=== PATIENT | male | born 1955 | race Caucasian/White ===

== ENCOUNTER 2025-07-22 23:19 | Inpatient (IN) | payer MEDICARE, OTHER ==
[2025-07-23] MEDS ORDERED: Calcium Carbonate 500 MG ChewTAB PO PRN (00:57)
[2025-07-23] MEDS ORDERED: Ondansetron PF 4 MG/2 ML Vial IVP PRN (00:57)
[2025-07-23] MEDS ORDERED: Acetaminophen 325 MG TAB PO PRN (00:57)
[2025-07-23 01:53] LABS: Hematocrit 16.7 % (42.0-52.0); Hemoglobin 5.2 g/dL (14.0-18.0); Mean Corpuscular Hemoglobin 33.3 pg (27.0-31.0); Mean Corpuscular Volume 107.1 fL (78.0-98.0); Platelet Count 101 10x3/uL (130-400); Red Blood Cell (RBC) Count 1.56 mill/uL (4.70-6.10); White Blood Cell (WBC) Count 2.98 10x3/uL (4.8-10.8)
[2025-07-23 01:55] LABS: Iron 126 ug/dL (65-175); Iron Binding Capacity, Total 244 mcg/dL (261-462)
[2025-07-23 01:56] LABS: ALT (SGPT) 17 U/L (Less than 45); AST (SGOT) 27 U/L (11-34); Albumin 3.3 g/dL (3.1-4.5); Alkaline Phosphatase 73 U/L (40-110); Anion Gap 9 mmol/L (10-20); BUN (Urea Nitrogen) 19 mg/dL (8.4-25.7); Bilirubin, Total 1.9 mg/dL (0.3-1.2); Calc. Creatinine Clearance 0 mL/min (70-130); Calcium 8.7 mg/dL (7.8-10.44); Carbon Dioxide 23 mmol/L (23-31); Cardiac Risk 3.7 (Less than 4.5); Chloride 105 mmol/L (98-107); Cholesterol 71 mg/dl (< 200 Desired); Globulin 5.4 g/dL (2.4-3.5); Glucose 158 mg/dL (83-110); HDL Cholesterol 19 mg/dL (>60 Neg Risk); Iron 124 ug/dL (65-175); Iron Binding Capacity, Total 245 mcg/dL (261-462); LDL Cholesterol, Calculated 37 mg/dL; Magnesium 2.2 mg/dL (1.6-2.6); Potassium 4.5 mmol/L (3.5-5.1); Sodium 132 mmol/L (136-145); Triglycerides 74 mg/dL (Less than 150)
[2025-07-23] MEDS ORDERED: Glucagon 1 MG/ML KIT IM PRN (02:02)
[2025-07-23] MEDS ORDERED: Dextrose 50% Abboject 50 ML SYRINGE SLOW IVP PRN (02:02)
[2025-07-23 02:15] LABS: Anisocytosis MODERATE=16-30 cells HPF (0-5); Macrocytosis SLIGHT = 6-15 cells HPF (0-5); Nucleated RBC (Manual Ct) 2 % (0); Ovalocytes SLIGHT = 2-5 cells HPF (0-1); Platelet Adequacy Comment Platelets Decreased; Polychromasia SLIGHT = 2-3 cells HPF (0-2); Smudge Cells 4.1 %
[2025-07-23 04:29] VITALS: BMI 34.6
[2025-07-23] MEDS: Furosemide 20 MG (2 mL) VIAL SLOW IVP SCH (10:13)
[2025-07-23 14:23] LABS: Glucose 195 mg/dL (83-110)
[2025-07-23 14:42] LABS: Immunoglob - G (Total IgG) 4008 mg/dL (540-1822)
[2025-07-23 14:58] LABS: Immunoglob - A (Total IgA) 15 mg/dL (101-645); Immunoglob - M (Total IgM) 11 mg/dL (22-240)
[2025-07-23 15:08] LABS: Hematocrit 18.9 % (42.0-52.0); Hemoglobin 6.2 g/dL (14.0-18.0); Platelet Count 90 10x3/uL (130-400)
[2025-07-24] MEDS ORDERED: Iopamidol 370 76% 100 ML VIAL ONE (10:33)
[2025-07-24 11:17] LABS: Hematocrit 21.0 % (42.0-52.0); Hemoglobin 6.7 g/dL (14.0-18.0); Mean Corpuscular Hemoglobin 31.3 pg (27.0-31.0); Mean Corpuscular Volume 98.1 fL (78.0-98.0); Platelet Count 84 10x3/uL (130-400); Red Blood Cell (RBC) Count 2.14 mill/uL (4.70-6.10); White Blood Cell (WBC) Count 2.35 10x3/uL (4.8-10.8)
[2025-07-24 11:21] LABS: ALT (SGPT) 19 U/L (Less than 45); AST (SGOT) 25 U/L (11-34); Albumin 3.4 g/dL (3.1-4.5); Alkaline Phosphatase 71 U/L (40-110); Anion Gap 8 mmol/L (10-20); BUN (Urea Nitrogen) 17 mg/dL (8.4-25.7); Bilirubin, Total 3.1 mg/dL (0.3-1.2); Calc. Creatinine Clearance 115 mL/min (70-130); Calcium 9.1 mg/dL (7.8-10.44); Carbon Dioxide 25 mmol/L (23-31); Chloride 103 mmol/L (98-107); Globulin 5.2 g/dL (2.4-3.5); Glucose 170 mg/dL (83-110); Potassium 4.1 mmol/L (3.5-5.1); Sodium 132 mmol/L (136-145)
[2025-07-24 12:14] LABS: #Basophils Less than 0.03 10x3/uL (0.0-0.2); #Eosinophils 0.03 10x3/uL (0.0-0.7); #Monocytes 0.12 10x3/uL (0.11-0.59); #Neutrophils 1.05 10x3/uL (1.40-6.50); %Basophils 0.0 % (0.0-1.0); %Eosinophils 1.7 % (0.0-10.0); %Lymphocytes 46.3 % (21.0-51.0); %Monocytes 5.2 % (0.0-10.0); %Neutrophils 45.9 % (42.0-75.0); Anisocytosis SLIGHT = 6-15 cells (100X) (0-5/hpf); Nucleated RBC (Manual Ct) 3 % (0); Ovalocytes MODERATE= 6-15 cells (100X) (0-1/hpf); Plasma Cells 0 % (0-0); Platelet Adequacy Comment Appears Decreased
[2025-07-24] MEDS: Furosemide 40 MG (4 mL) VIAL SLOW IVP SCH (14:19)
[2025-07-24 17:58] LABS: Hematocrit 20.9 % (42.0-52.0); Hemoglobin 7.0 g/dL (14.0-18.0)
[2025-07-25 04:57] LABS: Iron 98 ug/dL (65-175); Iron Binding Capacity, Total 258 mcg/dL (261-462)
[2025-07-25 04:58] LABS: Iron 99 ug/dL (65-175); Iron Binding Capacity, Total 264 mcg/dL (261-462)
[2025-07-25 05:05] LABS: Hematocrit 22.1 % (42.0-52.0); Hemoglobin 7.3 g/dL (14.0-18.0); Mean Corpuscular Hemoglobin 32.3 pg (27.0-31.0); Mean Corpuscular Volume 97.8 fL (78.0-98.0); Platelet Count 90 10x3/uL (130-400); Red Blood Cell (RBC) Count 2.26 mill/uL (4.70-6.10); White Blood Cell (WBC) Count 2.60 10x3/uL (4.8-10.8)
[2025-07-25 06:35] LABS: Anisocytosis MODERATE=16-30 cells HPF (0-5); Macrocytosis SLIGHT = 6-15 cells HPF (0-5); Nucleated RBC (Manual Ct) 1 % (0); Plasma Cells 3 % (0-0); Platelet Adequacy Comment Platelets Decreased; Polychromasia SLIGHT = 2-3 cells HPF (0-2); Smudge Cells 2.0 %
[2025-07-25] MEDS ORDERED: PROPOFOL 20 ML ONE (08:32)
[2025-07-25] MEDS ORDERED: Lidocaine 1% PF 5 ML VIAL ONE (08:32)
[2025-07-25] MEDS: Dapagliflozin Propanediol 10 MG TAB PO SCH (10:12)
[2025-07-25 11:20] LABS: Anion Gap 9 mmol/L (10-20); BUN (Urea Nitrogen) 19 mg/dL (8.4-25.7); Calc. Creatinine Clearance 118 mL/min (70-130); Calcium 9.1 mg/dL (7.8-10.44); Carbon Dioxide 26 mmol/L (23-31); Chloride 104 mmol/L (98-107); Glucose 132 mg/dL (83-110); Potassium 4.0 mmol/L (3.5-5.1); Sodium 135 mmol/L (136-145)
[2025-07-25] MEDS: GoLYTELY 4,000 ml Bottle PO SCH (16:34)
[2025-07-25] MEDS: Metoprolol Tartrate 5 MG (5 mL) VIAL IVP SCH (17:24)
[2025-07-26 05:45] LABS: Hematocrit 19.3 % (42.0-52.0); Hemoglobin 6.3 g/dL (14.0-18.0); Mean Corpuscular Hemoglobin 32.0 pg (27.0-31.0); Mean Corpuscular Volume 98.0 fL (78.0-98.0); Platelet Count 74 10x3/uL (130-400); Red Blood Cell (RBC) Count 1.97 mill/uL (4.70-6.10); White Blood Cell (WBC) Count 1.97 10x3/uL (4.8-10.8)
[2025-07-26 05:57] LABS: Anion Gap 10 mmol/L (10-20); BUN (Urea Nitrogen) 17 mg/dL (8.4-25.7); Calc. Creatinine Clearance 124 mL/min (70-130); Calcium 9.1 mg/dL (7.8-10.44); Carbon Dioxide 27 mmol/L (23-31); Chloride 105 mmol/L (98-107); Glucose 128 mg/dL (83-110); Potassium 4.2 mmol/L (3.5-5.1); Sodium 138 mmol/L (136-145)
[2025-07-26 06:19] LABS: Alpha-Fetoprotein,Tumor Marker Less than 2.0 ng/mL (0.89-8.78); Cancer Antigen - CA 125 15.2 U/mL (Less than 35)
[2025-07-26 09:19] LABS: Anisocytosis MODERATE=16-30 cells HPF (0-5); Giant Platelets 2.0 % (0-5); Nucleated RBC (Manual Ct) 2 % (0); Ovalocytes SLIGHT = 2-5 cells HPF (0-1); Platelet Adequacy Comment Platelets Decreased; Polychromasia SLIGHT = 2-3 cells HPF (0-2); Smudge Cells 4.9 %
[2025-07-26] MEDS ORDERED: PHENYLEPHRINE-NS 100 MCG/ML 10 ML SYRINGE ONE (09:36)
[2025-07-26] MEDS ORDERED: PROPOFOL 20 ML ONE (09:46)
[2025-07-26 09:50] LABS: Kappa Lambda Light Chain Ratio 5.4 (0.26-1.65)
[2025-07-26] MEDS: Spironolactone 25 MG TAB PO SCH (13:21)
[2025-07-26 19:08] LABS: Hematocrit 23.0 % (42.0-52.0); Hemoglobin 7.4 g/dL (14.0-18.0); Mean Corpuscular Hemoglobin 31.2 pg (27.0-31.0); Mean Corpuscular Volume 97.0 fL (78.0-98.0); Platelet Count 75 10x3/uL (130-400); Red Blood Cell (RBC) Count 2.37 mill/uL (4.70-6.10); White Blood Cell (WBC) Count 1.99 10x3/uL (4.8-10.8)
[2025-07-26 19:15] LABS: Iron 97 ug/dL (65-175); Iron Binding Capacity, Total 223 mcg/dL (261-462)
[2025-07-26 19:37] LABS: Anisocytosis SLIGHT = 6-15 cells HPF (0-5); Nucleated RBC (Manual Ct) 2 % (0); Ovalocytes SLIGHT = 2-5 cells HPF (0-1); Platelet Adequacy Comment Platelets Decreased; Poikilocytosis SLIGHT = 6-15 cells HPF (0-5); Polychromasia SLIGHT = 2-3 cells HPF (0-2)
[2025-07-27 05:43] LABS: Hematocrit 21.4 % (42.0-52.0); Hemoglobin 7.0 g/dL (14.0-18.0); Mean Corpuscular Hemoglobin 31.7 pg (27.0-31.0); Mean Corpuscular Volume 96.8 fL (78.0-98.0); Platelet Count 73 10x3/uL (130-400); Red Blood Cell (RBC) Count 2.21 mill/uL (4.70-6.10); White Blood Cell (WBC) Count 2.14 10x3/uL (4.8-10.8)
[2025-07-27 06:13] LABS: IFE-Serum Interpretation Note: (.); IgA - Total IgA (Sendout) 12 mg/dL (61-437); Immunoglobulin - G (Sendout) 3893 mg/dL (603-1613); Immunoglobulin - M (Sendout) 11 mg/dL (15-143)
[2025-07-27] MEDS: Metoprolol Succinate XL 100 MG ER.TAB PO SCH (06:18)
[2025-07-27 07:45] LABS: Anisocytosis SLIGHT = 6-15 cells HPF (0-5); Burr Cells SLIGHT = 2-5 cells HPF (0-1); Nucleated RBC (Manual Ct) 3 % (0); Platelet Adequacy Comment Platelets Decreased; Polychromasia SLIGHT = 2-3 cells HPF (0-2); Schistocytes SLIGHT = 2-5 cells HPF (0-1); Smudge Cells 11.1 %; Spherocytes SLIGHT = 1-5 cells HPF (None Seen)
[2025-07-27] MEDS: Spironolactone 25 MG TAB PO SCH (08:46)
[2025-07-27 09:11] LABS: INR-International Normal Ratio 1.3; PTT 33.2 sec (22.9-36.1); Prothrombin Time 16.2 sec (12.0-14.7)
[2025-07-27 16:14] LABS: A/G Ratio 0.7 (0.7-1.7); Albumin 3.4 g/dL (2.9-4.4); Alpha 1 0.3 g/dL (0.0-0.4); Alpha 2 0.7 g/dL (0.4-1.0); Beta 0.8 g/dL (0.7-1.3); Gamma 3.2 g/dL (0.4-1.8); Globulin, Total 5.0 g/dL (2.2-3.9); M-Spike 2.9 g/dL (Not Observed); Protein Electrophoresis Intrp Note: (.)
[2025-07-28] MEDS: Metoprolol Succinate XL 50 MG ER.TAB PO SCH ×2 (06:03→06:12)
[2025-07-28 07:24] LABS: Anisocytosis SLIGHT = 6-15 cells HPF (0-5); Burr Cells SLIGHT = 2-5 cells HPF (0-1); Macrocytosis SLIGHT = 6-15 cells HPF (0-5); Platelet Adequacy Comment Platelets Normal; Polychromasia SLIGHT = 2-3 cells HPF (0-2)
[2025-07-28 08:17] LABS: Hematocrit 23.6 % (42.0-52.0); Hemoglobin 7.2 g/dL (14.0-18.0); Mean Corpuscular Hemoglobin 31.9 pg (27.0-31.0); Mean Corpuscular Volume 104.4 fL (78.0-98.0); Platelet Count 71 10x3/uL (130-400); Red Blood Cell (RBC) Count 2.26 mill/uL (4.70-6.10); White Blood Cell (WBC) Count 1.88 10x3/uL (4.8-10.8)
[2025-07-28 08:19] LABS: #Basophils Less than 0.03 10x3/uL (0.0-0.2); #Eosinophils 0.03 10x3/uL (0.0-0.7); #Monocytes 0.10 10x3/uL (0.11-0.59); #Neutrophils 0.77 10x3/uL (1.40-6.50); %Basophils 0.5 % (0.0-1.0); %Eosinophils 1.6 % (0.0-10.0); %Lymphocytes 51.1 % (21.0-51.0); %Monocytes 5.3 % (0.0-10.0); %Neutrophils 41.0 % (42.0-75.0)
[2025-07-28] MEDS: Digoxin 0.5 MG/2 ML AMP SLOW IVP SCH (13:39)
[2025-07-28 18:15] VITALS: BP 127/75; TEMP 98.4
[2025-07-28 22:38] LABS: % Free PSA 21.7 % (.); Total PSA 8.3 ng/mL (0.0-4.0)
[2025-07-29] MEDS ORDERED: Metoprolol Succinate XL 50 MG ER.TAB PO SCH (06:00)
[2025-07-29] MEDS ORDERED: Digoxin 0.125 MG TAB PO SCH (09:00)
[2025-07-29] MEDS ORDERED: Metoprolol Succinate XL 100 MG ER.TAB PO SCH (09:00)
== END 2025-07-28 18:45 | disposition home or self-care (01) | DRG 840 ==
LOC: 2NO 07-23 00:25
PROVIDERS: ADMIT Student in an Organized Health Care Education/Training Program; ATTEND Internal Medicine
PROC: 30233N1 Transfusion of Nonautologous Red Blood Cells into Peripheral Vein, Percutaneous Approach (ICD-10-PCS; 2025-07-23)
PROC: 0DB68ZX Excision of Stomach, Via Natural or Artificial Opening Endoscopic, Diagnostic (ICD-10-PCS; 2025-07-25)
PROC: 0DBN8ZZ Excision of Sigmoid Colon, Via Natural or Artificial Opening Endoscopic (ICD-10-PCS; 2025-07-26)
PROC: 0DBL8ZZ Excision of Transverse Colon, Via Natural or Artificial Opening Endoscopic (ICD-10-PCS; 2025-07-26)
PROC: 3E033XZ Introduction of Vasopressor into Peripheral Vein, Percutaneous Approach (ICD-10-PCS; 2025-07-26)
PROC: 079T3ZX Drainage of Bone Marrow, Percutaneous Approach, Diagnostic (ICD-10-PCS; principal; 2025-07-27)
PROC: 07DR3ZX Extraction of Iliac Bone Marrow, Percutaneous Approach, Diagnostic (ICD-10-PCS; 2025-07-27)
DX: C90.00 Multiple myeloma not having achieved remission (principal); I50.33 Acute on chronic diastolic (congestive) heart failure; D61.818 Other pancytopenia; I48.11 Longstanding persistent atrial fibrillation; Z66 Do not resuscitate; N40.1 Benign prostatic hyperplasia with lower urinary tract symptoms; K31.7 Polyp of stomach and duodenum; K63.5 Polyp of colon; K64.8 Other hemorrhoids; R31.9 Hematuria, unspecified; K57.30 Diverticulosis of large intestine without perforation or abscess without bleeding; M89.9 Disorder of bone, unspecified; G47.33 Obstructive sleep apnea (adult) (pediatric); E11.9 Type 2 diabetes mellitus without complications; R97.20 Elevated prostate specific antigen [PSA]; Z88.0 Allergy status to penicillin; Z98.890 Other specified postprocedural states; Z87.891 Personal history of nicotine dependence; I11.0 Hypertensive heart disease with heart failure; Z91.148 Patient's other noncompliance with medication regimen for other reason
CPT/HCPCS: 36415; 36416; 36430; 38222; 71260; 74177; 76705; 77002; 77012; 80048; 80053; 80061; 81001; 82105; 82232; 82378; 82728; 83010; 83036; 83540; 83550; 83615; 83735; 83880; 83883; 84153; 84154; 84155; 84165; 84443; 85025; 85046; 85097; 85610; 85730; 86301; 86304; 86334; 86850; 86900; 86901; 88108; 88184; 88185; 88189; 88237; 88264; 88280; 88305; 88311; 88313; 88341; 88342; 88365; 93306; 93798; G0103; J1160; J1940; J2250; J2704; J3010; P9016; Q9967

== ENCOUNTER 2025-08-11 10:15 | Outpatient (CLI) | payer MEDICARE, OTHER | END 2025-08-11 10:16 | disposition home or self-care (01) | LOC: PET 10:15 | PROVIDERS: ATTEND Internal Medicine | DX: C90.00 Multiple myeloma not having achieved remission (principal); R16.1 Splenomegaly, not elsewhere classified; M89.9 Disorder of bone, unspecified | CPT/HCPCS: 78815; A9552 ==

== ENCOUNTER 2025-08-20 12:27 | Day surgery (SDC) | payer MEDICARE, OTHER ==
[2025-08-20] MEDS ORDERED: diphenhydrAMINE 25 MG CAP PO SCH (13:00)
[2025-08-20] MEDS ORDERED: Acetaminophen 500 MG TAB ONE (14:07)
[2025-08-20] MEDS: Acetaminophen 500 MG TAB PO SCH (14:07)
[2025-08-20 17:11] VITALS: BP 116/59; TEMP 97.6
== END 2025-08-20 17:08 | disposition home or self-care (01) ==
LOC: ONC/OP 12:27
PROVIDERS: ATTEND Internal Medicine
DX: D64.9 Anemia, unspecified (principal); Z88.0 Allergy status to penicillin; I50.32 Chronic diastolic (congestive) heart failure
CPT/HCPCS: 36430; 86850; 86900; 86901; 86920; P9016; 80053

== ENCOUNTER 2025-10-14 11:49 | Day surgery (SDC) | payer MEDICARE, OTHER ==
[~2025-10-14 11:49] MED LIST: Acetaminophen 500 MG TAB PO SCH; diphenhydrAMINE 25 MG CAP PO SCH
[2025-10-14 16:05] VITALS: BP 111/61; TEMP 97.5
== END 2025-10-14 15:55 | disposition home or self-care (01) ==
LOC: ONC/OP 11:49
PROVIDERS: ATTEND Internal Medicine
DX: D64.9 Anemia, unspecified (principal); D69.6 Thrombocytopenia, unspecified
CPT/HCPCS: 36430; 86850; 86900; 86901; 86920; P9016

== ENCOUNTER 2025-10-15 13:18 | Outpatient (CLI) | payer MEDICARE, OTHER ==
[~2025-10-15 13:18] MED LIST changes: -Acetaminophen 500 MG TAB PO SCH; +Iopamidol 370 76% 100 ML VIAL ONE; -diphenhydrAMINE 25 MG CAP PO SCH
== END 2025-10-15 13:19 | disposition home or self-care (01) ==
LOC: CT 13:18
PROVIDERS: ATTEND Internal Medicine
DX: C90.00 Multiple myeloma not having achieved remission (principal); D70.8 Other neutropenia; R16.1 Splenomegaly, not elsewhere classified; Z79.899 Other long term (current) drug therapy
CPT/HCPCS: 74177